=== PATIENT | male | born 1955 | race African-American/Black ===

== ENCOUNTER → 2020-06-24 | Outpatient (CLI) | payer OTHER ==
[~2020-06-24] MED LIST: ALLOPURINOL 10100 M1 PO; AMLODIPINE BESY10 MG PO; ASA81BEC PO; ATORVASTATIN CA10 MG PO; METOPROLOL SUC100 MG PO; MYCOPHENOLIC A360 MG PO; ROPINIROLE HCL0.5 MG PO; SILDENAFIL CIT100 MG PO; SLOW-MAG64 M1 PO; TACROLIMUS1 MG PO; VIRT-CAPS SOFTGE1 MG PO; VITAMIN D3125 MC2 PO
== END ==
LOC: LAB 11:58
PROVIDERS: Student in an Organized Health Care Education/Training Program; ATTEND Surgery
DX: Z01.812 Encounter for preprocedural laboratory examination (principal); Z20.822 Contact with and (suspected) exposure to COVID-19

== ENCOUNTER → 2020-06-26 | Outpatient (CLI) | payer OTHER ==
[~2020-06-26] VITALS: Ht 182.9 cm; Wt 117.9 kg
[2020-06-26 06:58] LABS: HEMATOCRIT 46.7 % (42.0-52.0); HEMOGLOBIN 16.2 gm/dL (14.0-18.0); MCH 32.3 pg (26.0-34.0); MCHC 34.6 g/dL (28.0-37.0); MCV 93.4 fL (80.0-100.0); RDW 14.7 % (10.5-14.5); WBC 4.9 thou/uL (4.0-11.0)
[2020-06-26 07:03] LABS: CALCIUM 9.3 mg/dL (8.5-10.1); CREATININE 1.4 mg/dL (0.7-1.3); POTASSIUM 4.4 mmol/L (3.5-5.1)
[2020-06-26 07:09] LABS: ALBUMIN 3.7 g/dL (3.4-5.0); TOTAL BILIRUBIN 0.4 mg/dL (0.2-1.0)
--- NOTE | 2020-06-26 14:51 | EKG ---
[address] [place] [address] ELECTROCARDIOGRAM REPORT Name: CRISTINA MADDEN Room #: [facility]#: [id number] Admission: Attend Phys: Partha Chun, Discharge: Date of : 59 Report #: [id number] [facility] [place] [place] Test Date: 2020-06-26 Test Time: 06:51:04 Pat Name: CRISTINA MADDEN Department: Room: 150 1 Gender: M Embedded Hardware Engineer: KRANTHI : 1955 Requested By: Vinita Block Order Number: [id number] MD: Ludwig Jimenez Measurements Intervals [place] Rate: 74 P: 9 VA: 164 QRS: -12 QRSD: 87 T: 7 QT: 376 QTc: 418 Interpretive Statements Sinus rhythm Atrial premature complex Low voltage, extremity leads No previous ECG available for comparison Electronically Signed On 06-26-2020 14:51:43 CDT by Ludwig Jmienez [email or web address] <ELECTRONICALLY SIGNED> By: Ludwig Jimenez MD 06/26/20 1451 [id number] Ludwig Jimenez MD /GREG
== END | disposition home or self-care (01) ==
LOC: TBA 06:07 → OR 06:07 → TBA 06:09 → PAC 09:00 → OR 09:09 → EDSTATUS 13:09 → OR 13:55
PROVIDERS: Anesthesiology; ATTEND Surgery
DX: K43.9 Ventral hernia without obstruction or gangrene (principal); Z53.8 Procedure and treatment not carried out for other reasons; I10 Essential (primary) hypertension; E78.00 Pure hypercholesterolemia, unspecified; G47.30 Sleep apnea, unspecified; F17.210 Nicotine dependence, cigarettes, uncomplicated; Z79.899 Other long term (current) drug therapy; Z98.890 Other specified postprocedural states; Z20.822 Contact with and (suspected) exposure to COVID-19; Z99.2 Dependence on renal dialysis; Z90.49 Acquired absence of other specified parts of digestive tract; Z88.8 Allergy status to other drugs, medicaments and biological substances; Z85.46 Personal history of malignant neoplasm of prostate